=== PATIENT | male | born 1975 | race Hispanic/Latino ===

== ENCOUNTER 2021-06-16 09:44 | Emergency (ER) | payer OTHER ==
[2021-06-16] MEDS ORDERED: NA CHLORIDE 0.9% 1,000 ML ONE (10:25)
[2021-06-16] MEDS ORDERED: METHYLPREDNISOLONE 125 MG INJ ONE (10:25)
[2021-06-16 10:35] LABS: Absolute Lymphocytes (CBC) 1.5 K/uL (0.7-4.9); Basophils % 0.4 % (0-1.3); Hematocrit 44.8 % (39.6-49.0); Lymphocytes % 16.2 % (15.3-44.8); RBC Red Blood Cell Count 4.95 M/uL (4.33-5.43)
[2021-06-16 10:48] LABS: Protime INR 1.1
[2021-06-16 11:00] LABS: ALT/SGPT 75 U/L (12-78); AST/SGOT 29 U/L (15-37); Albumin 4.1 g/dL (3.4-5.0); Alkaline Phosphatase 62 U/L (45-117); BUN Blood Urea Nitrogen 15 mg/dL (7-18); Bicarbonate 23 mmol/L (21-32); Bilirubin Direct 0.2 mg/dL (0-0.2); Bilirubin Total 0.5 mg/dL (0.2-1.0); Glucose Level 135 mg/dL (74-106); Potassium 3.8 mmol/L (3.5-5.1); Protein, Total 8.2 g/dL (6.4-8.2); Sodium Level 138 mmol/L (136-145); Troponin (Emerg Dept Use Only) < 0.02 ng/mL (0.0-0.045)
--- NOTE | 2021-06-16 11:18 | RAD REPORT ---
EXAM DESCRIPTION: RAD - Chest Single View - 06/16/2021 10:43 am CLINICAL HISTORY: Cough;Dyspnea Chest pain. COMPARISON: No comparisons FINDINGS: Portable technique limits examination quality. The lungs are grossly clear. The heart is normal in size. No displaced fractures. IMPRESSION: No acute intrathoracic process suspected.
[2021-06-16] MEDS ORDERED: ACETAMINOPHEN 325 MG TABLET ONE (12:06)
[2021-06-16] MEDS ORDERED: levoFLOXacin 750 MG TAB ONE (14:53)
--- NOTE | 2021-06-17 17:24 | ER ---
Nurse's Notes [facility] Name: Russell Bhatti Age: 45 yrs Sex: Male : 1975 Arrival Date: 06/16/2021 Time: 09:49 Bed 17 Private MD: Diagnosis: Cough;Fever, unspecified Presentation: 06/16 09:49 Chief complaint: Patient states: nausea/vomiting/diarrhea, cough and congestion x 3 aa5 days ago. Pt reports being at [facility] for 5 days for Alcoholism. 09:49 Onset of symptoms was May 2021. aa5 09:49 Acuity: ESTEBAN 3 aa5 09:49 Method Of Arrival: EMS: [facility] aa5 09:49 Coronavirus screen: diarrhea, nausea, vomiting. Ebola Screen: Patient negative for aa5 fever greater than or equal to 101.5 degrees Fahrenheit, and additional compatible Ebola Virus Disease symptoms. Initial Sepsis Screen: Does the patient meet any 2 criteria? No. Patient's initial sepsis screen is negative. Does the patient have a suspected source of infection? No. Patient's initial sepsis screen is negative. Risk Assessment: Do you want to hurt yourself or someone else? Patient reports no desire to harm self or others. 09:49 Care prior to arrival: Glucose check: 165. aa5 Historical: - Allergies: 09:49 No Known Allergies; aa5 - PMHx: 09:49 Hypertensive disorder; Diabetes mellitus; Neuropathy/Chronic pain; aa5 - Immunization history:: Client reports receiving the 1st dose of the Covid vaccine. - Social history:: Smoking status: Patient denies any tobacco usage or history of. - Family history:: not pertinent. - Hospitalizations: : No recent hospitalization is reported. Screenin:30 Abuse screen: Denies threats or abuse. Nutritional screening: No deficits noted. ap3 Tuberculosis screening: No symptoms or risk factors identified. Fall Risk None identified. Assessment: 10:37 General: Appears in no apparent distress. uncomfortable, Behavior is calm, cooperative, ap3 appropriate for age. General: Reports feeling ill for 12-24 hours. Pain: Complains of pain in generalized aches and pains. Neuro: Level of Consciousness is awake, alert, obeys commands, Oriented to person, place, time, situation, Appropriate for age. Cardiovascular: Denies chest pain, Capillary refill < 3 seconds Patient's skin is warm and dry. Respiratory: Airway is patent Respiratory effort is even, unlabored, Respiratory pattern is regular, symmetrical. GI: Abdomen is round Reports diarrhea. : No signs and/or symptoms were reported regarding the genitourinary system. EENT: Reports lack of ability to taste or smell. 11:38 Reassessment: Patient and/or family updated on plan of care and expected duration. Pain ap3 level reassessed. Patient is alert, oriented x 3, equal unlabored respirations, skin warm/dry/pink. 14:26 Reassessment: No changes from previously documented assessment. ap3 Vital Signs: 09:50 BP 131 / 93; Pulse 101; Pulse Ox 100% on R/A; ap3 09:50 Temp 99.2(O); Weight 113.4 kg (R); Height 5 ft. 9 in. (175.26 cm) (R); Pain 10/10; aa5 11:38 Pulse 85; Resp 17; Pulse Ox 100% on R/A; ap3 12:22 BP 126 / 99; Pulse 89; Resp 19; Pulse Ox 100% on R/A; ap3 13:32 BP 112 / 69; Pulse 101; Pulse Ox 98% on R/A; ap3 14:26 Pulse 88; Resp 16; Pulse Ox 99% on R/A; ap3 09:50 Body Mass Index 36.92 (113.40 kg, 175.26 cm) aa5 ED Course: 09:49 Patient arrived in ED. aa5 09:49 Kip Tolentino MD is Attending Physician. rn 09:49 Arm band placed on. aa5 09:50 Patricia Sheridan, JIMBO is Primary Nurse. ap3 10:05 Inserted saline lock: 20 gauge in right antecubital area, using aseptic technique. ap3 Blood collected. 10:15 Triage completed. aa5 10:30 Patient has correct armband on for positive identification. Placed in gown. Bed in low ap3 position. Call light in reach. Side rails up X2. Pulse ox on. NIBP on. Door closed. Noise minimized. 10:43 CXR XRAY In Process Unspecified. EDMS 14:36 No provider procedures requiring assistance completed. IV discontinued, intact, ap3 bleeding controlled, No redness/swelling at site. Pressure dressing applied. Administered Medications: 10:43 Drug: NS 0.9% 500 ml Route: IV; Rate: bolus; Site: right antecubital; ap3 14:28 Follow up: Response: No adverse reaction; IV Status: Completed infusion ap3 10:43 Drug: SOLU-Medrol (methylPrednisoLONE) 125 mg Route: IVP; Site: right antecubital; ap3 11:42 Follow up: Response: No adverse reaction ap3 14:28 Follow up: Response: No adverse reaction ap3 11:47 Drug: Tylenol 650 mg Route: PO; ap3 12:34 Follow up: Response: No adverse reaction; Pain is decreased ap3 14:28 Follow up: Response: No adverse reaction ap3 14:36 Drug: LevaQUIN (levofloxacin) 750 mg Route: PO; ap3 14:37 Follow up: Response: No adverse reaction ap3 Outcome: 14:25 Discharge ordered by . rn 14:36 Discharged to home ambulatory. ap3 14:36 Condition: good 14:36 Discharge instructions given to patient, Instructed on discharge instructions, follow up and referral plans. medication usage, Demonstrated understanding of instructions, follow-up care, medications, Prescriptions given X 1. 14:37 Patient left the ED. ap3 Signatures: Dispatcher [employer] EDMS Kip Tolentino MD MD rn Calderon, Audri RN RN aa5 Patricia Sheridan RN RN ap3 Corrections: (The following items were deleted from the chart) 10:15 09:49 Chief complaint: Patient states: nausea/vomiting/diarrhea, cough and congestion x aa5 3 days ago. aa5 10:19 09:50 Temp 99.2F Oral; aa5 aa5 10:19 09:49 Chief complaint: Patient states: nausea/vomiting/diarrhea, cough and congestion x aa5 3 days ago. Pt reports being at [facility] for 5 days for Alcoholism. aa5
--- NOTE | 2021-06-17 17:24 | EDPHYS ---
Physician Documentation [facility] Name: Russell Bhatti Age: 45 yrs Sex: Male : 1975 Arrival Date: 06/16/2021 Time: 09:49 Bed 17 Private MD: ED Physician Kip Tolentino HPI: 06/16 10:07 This 45 yrs old Male presents to ER via Unassigned with complaints of Cough, congestion.rn 10:08 The patient or guardian reports cough, that is intermittent, described as mild. Onset: rn The symptoms/episode began/occurred 3 day(s) ago. Severity of symptoms: At their worst the symptoms were mild, in the emergency department the symptoms are unchanged. Modifying factors: The symptoms are alleviated by nothing, the symptoms are aggravated by nothing. Associated signs and symptoms: Pertinent positives: diarrhea, fever, rhinorrhea, Pertinent negatives: chest pain. The patient has not experienced similar symptoms in the past. The patient has not recently seen a physician. Reports 3 days of subjective fever, chills, nasal congestion, cough, lack of taste and smell, diarrhea, muscle aches and fatigue. Has had 1 shot in his Covid vaccine series.. Historical: - Allergies: 09:49 No Known Allergies; aa5 - PMHx: 09:49 Hypertensive disorder; Diabetes mellitus; Neuropathy/Chronic pain; aa5 - Immunization history:: Client reports receiving the 1st dose of the Covid vaccine. - Social history:: Smoking status: Patient denies any tobacco usage or history of. - Family history:: not pertinent. - Hospitalizations: : No recent hospitalization is reported. ROS: 10:08 Constitutional: Positive for fever and chills Eyes: Negative for injury, pain, redness, rn and discharge, ENT: Positive for nasal congestion Neck: Negative for injury, pain, and swelling, Cardiovascular: Negative for chest pain, palpitations, and edema, Respiratory: Positive for cough Abdomen/GI: Positive for nausea and diarrhea Back: Negative for injury and pain, : Negative for injury, bleeding, discharge, and swelling, MS/Extremity: Negative for injury and deformity, Skin: Negative for injury, rash, and discoloration, Neuro: Negative for headache, numbness, tingling, and seizure. Exam: 10:08 Constitutional: This is a well developed, well nourished patient who is awake, alert, rn and in no acute distress. Head/Face: Normocephalic, atraumatic. Eyes: Pupils equal round and reactive to light, extra-ocular motions intact. Lids and lashes normal. Conjunctiva and sclera are non-icteric and not injected. Cornea within normal limits. Periorbital areas with no swelling, redness, or edema. ENT: Moist mucous membranes, no stridor Neck: Trachea midline, no masses palpated, and no cervical lymphadenopathy. Supple, full range of motion without nuchal rigidity, or vertebral point tenderness. No Meningismus. Cardiovascular: Tachycardic, regular. No pulse deficits. Respiratory: Mild tachypnea, speaking full sentences. Abdomen/GI: Soft nontender Skin: Warm, dry, no evidence of cellulitis MS/ Extremity: Pulses equal, no cyanosis. Neurovascular intact. Full, normal range of motion. Equal circumference. Neuro: Awake and alert, GCS 15, oriented to person, place, time, and situation. Cranial nerves II-XII grossly intact. Motor strength 5/5 in all extremities. Sensory grossly intact. Cerebellar exam normal. Vital Signs: 09:50 BP 131 / 93; Pulse 101; Pulse Ox 100% on R/A; ap3 09:50 Temp 99.2(O); Weight 113.4 kg (R); Height 5 ft. 9 in. (175.26 cm) (R); Pain 10/10; aa5 11:38 Pulse 85; Resp 17; Pulse Ox 100% on R/A; ap3 12:22 BP 126 / 99; Pulse 89; Resp 19; Pulse Ox 100% on R/A; ap3 13:32 BP 112 / 69; Pulse 101; Pulse Ox 98% on R/A; ap3 14:26 Pulse 88; Resp 16; Pulse Ox 99% on R/A; ap3 09:50 Body Mass Index 36.92 (113.40 kg, 175.26 cm) aa5 MDM: 09:49 Patient medically screened. rn 14:23 Differential Diagnosis: Bronchitis Influenza Upper Respiratory Infection Sinusitis rn Viral Syndrome Pneumonia Other COVID. Data reviewed: vital signs, nurses notes, lab test result(s), radiologic studies, plain films, and as a result, I will discharge patient. Counseling: I had a detailed discussion with the patient and/or guardian regarding: the historical points, exam findings, and any diagnostic results supporting the discharge/admit diagnosis, lab results, radiology results, the need for outpatient follow up, to return to the emergency department if symptoms worsen or persist or if there are any questions or concerns that arise at home. Response to treatment: the patient's symptoms have mildly improved after treatment, and as a result, I will discharge patient. Special discussion: I discussed with the patient/guardian in detail that at this point there is no indication for admission to the hospital. It is understood, however, that if the symptoms persist or worsen the patient needs to return immediately for re-evaluation. ED course: With negative, no acute findings on chest x-ray, no oxygen requirement. Patient states around 3 or 4 other sick patients that appear worse than he is, so could be another viral infection. Will cover with antibiotics given unclear etiology and given return precautions. Recommend Covid retest in 48 hours given elevated ferritin and CRP and other symptoms consistent with possible Covid infection. 06/16 09:51 Order name: BMP 06/16 09:51 Order name: Blood Culture Adult (2) 06/16 09:51 Order name: C-Reactive Protein; Complete Time: 11:19 06/16 09:51 Order name: CBC with Diff; Complete Time: 10:40 06/16 09:51 Order name: D-Dimer; Complete Time: 11:19 06/16 09:51 Order name: Ferritin; Complete Time: 11:19 06/16 09:51 Order name: Flu; Complete Time: 12:41 06/16 09:51 Order name: LFT's; Complete Time: 11:19 06/16 09:51 Order name: Lactate; Complete Time: 11:19 06/16 09:51 Order name: PT-INR; Complete Time: 11:19 06/16 09:51 Order name: Procalcitonin; Complete Time: 11:19 06/16 09:51 Order name: Ptt, Activated; Complete Time: 11:19 06/16 09:51 Order name: Strep; Complete Time: 12:41 06/16 09:51 Order name: Troponin (emerg Dept Use Only); Complete Time: 11:19 06/16 09:51 Order name: CXR XRAY; Complete Time: 11:06/16 09:51 Order name: Cardiac monitoring; Complete Time: 09:58 rn 06/16 09:51 Order name: Droplet/Contact Precautions; Complete Time: 09:58 rn 06/16 09:51 Order name: EKG - Nurse/Tech; Complete Time: 14:37 rn 06/16 09:51 Order name: IV Start; Complete Time: 09:53 rn 06/16 09:51 Order name: Labs collected and sent; Complete Time: 09:53 rn 06/16 09:51 Order name: O2 Per Protocol; Complete Time: 09:53 rn 06/16 09:51 Order name: Basic Metabolic Panel; Complete Time: 11:19 EDMS 06/16 12:11 Order name: Throat Culture EDMT 06/16 13:24 Order name: SARS-COV-2 RT PCR; Complete Time: 13:54 EDMT 06/16 09:51 Order name: O2 Sat Monitoring; Complete Time: 09:53 rn Administered Medications: 10:43 Drug: NS 0.9% 500 ml Route: IV; Rate: bolus; Site: right antecubital; ap3 14:28 Follow up: Response: No adverse reaction; IV Status: Completed infusion ap3 10:43 Drug: SOLU-Medrol (methylPrednisoLONE) 125 mg Route: IVP; Site: right antecubital; ap3 11:42 Follow up: Response: No adverse reaction ap3 14:28 Follow up: Response: No adverse reaction ap3 11:47 Drug: Tylenol 650 mg Route: PO; ap3 12:34 Follow up: Response: No adverse reaction; Pain is decreased ap3 14:28 Follow up: Response: No adverse reaction ap3 14:36 Drug: LevaQUIN (levofloxacin) 750 mg Route: PO; ap3 14:37 Follow up: Response: No adverse reaction ap3 Disposition Summary: 06/16/21 14:25 Discharge Ordered Location: Home rn Problem: new rn Symptoms: have improved rn Condition: Stable rn Diagnosis - Cough rn - Fever, unspecified rn Followup: rn - With: Private Physician - When: As needed - Reason: Recheck today's complaints, Re-evaluation by your physician Discharge Instructions: - Discharge Summary Sheet rn - Fever, Adult rn - Cough, Adult rn Forms: - Medication Reconciliation Form rn - Thank You Letter rn - Antibiotic external relations manager - Prescription Opioid Use rn Prescriptions: - levofloxacin 750 mg Oral Tablet - take 1 tablet by ORAL route once daily for 7 days; 7 tablet; Refills: 0, rn Product Selection Permitted Signatures: Dispatcher [employer] EDKip Narayan MD MD rn Calderon, Audri, RN RN aa5 Patricia Sheridan RN RN ap3 Corrections: (The following items were deleted from the chart) 12:17 09:52 CORONAVIRUS+.BRZ ordered. EDMS EDMS
[2021-06-18 07:53] VITALS: TEMP 99.2
[2021-06-18 08:02] VITALS: BP 112/69
[2021-06-18 08:03] VITALS: O2SAT 99
== END 2021-06-16 14:37 | disposition home or self-care (01) ==
LOC: ER 09:44
DX: R50.9 Fever, unspecified (principal); I10 Essential (primary) hypertension; Z20.822 Contact with and (suspected) exposure to COVID-19
CPT/HCPCS: 87040 ×2; 87070; 85025; 80048; 36415; 85610; 85379; 80076; 87081; 83605; 85730; 84484; 82728; 84145; 86140; 87804 ×2; 71045; U0003; J7030; J2930

== ENCOUNTER 2025-09-11 17:48 | Emergency (ER) | payer OTHER ==
[2025-09-11] MEDS ORDERED: AMOX/K CLAV 875 MG TAB ONE (18:40)
--- NOTE | 2025-09-11 18:40 | EDPHYS ---
Physician Documentation [facility] Name: Russell Bhatti Age: 50 yrs Sex: Male : 1975 Arrival Date: 09/11/2025 Time: 17:48 Bed 14 Private MD: ED Physician Joel Galvan HPI: 09/11 18:38 This 50 yrs old Male presents to ER via Ambulatory with complaints of Dog Bite kb - LT HAND. 18:38 Patient is a 50-year-old male who presents for dog bite that occurred last night. kb States he was playing with his dog and it bit him. Reports he came in because he was concerned that it would get infected and he was not sure if he needed antibiotics. Last tetanus shot within this year.. Historical: - Allergies: 17:59 No Known Allergies; dd2 - PMHx: 17:59 diabetes mellitus; Hypertensive disorder; Neuropathy/Chronic pain; dd2 - PSHx: 17:59 None; dd2 - Immunization history:: Adult Immunizations up to date, Last tetanus immunization: up to date. - Infectious Disease History:: Denies. - Social history:: Smoking status: Patient denies any tobacco usage or history of. ROS: 18:37 Constitutional: As per HPI kb Exam: 18:37 Constitutional: This is a well developed, well nourished patient who is awake, alert, kb and in no acute distress. Head/Face: Normocephalic, atraumatic. ENT: Moist Mucous membranes Respiratory: Respirations even and unlabored. No increased work of breathing. Talking in full sentences MS/ Extremity: Pulses equal, no cyanosis. Neurovascular intact. Full, normal range of motion. Neuro: Awake and alert, GCS 15, oriented to person, place, time, and situation. 18:37 Skin: injury, bite(s), superficial, of the left middle finger, left ring finger and left little finger, laceration to fifth digit, small puncture wounds to third and fourth digits, Vital Signs: 17:56 BP 126 / 88; Pulse 83; Resp 16; Temp 98.6; Pulse Ox 97% ; Weight 111.13 kg; Pain 9/10; dd2 17:56 Pain Scale: Adult dd2 Angelic Coma Score: 18:55 Eye Response: spontaneous(4). Motor Response: obeys commands(6). Verbal Response: km10 oriented(5). Total: 15. Trauma Score (Adult): 18:55 Eye Response: spontaneous(1); Verbal Response: oriented(1); Motor Response: obeys km10 commands(2); Systolic BP: > 89 mm Hg(4); Respiratory Rate: 10 to 29 per min(4); Angelic Score: 15; Trauma Score: 12 MDM: 17:53 Medical Screening Exam initiated kb 18:38 Differential diagnosis: superficial laceration, tendon injury, cellulitis. Data kb reviewed: vital signs, nurses notes. Test considered but Not performed: X-ray: xray considered but pt has full ROM . Counseling: I had a detailed discussion with the patient and/or guardian regarding the historical points, exam findings, and any diagnostic results supporting the discharge/admit diagnosis, the need for outpatient follow up, a family practitioner, to return to the emergency department if symptoms worsen or persist or if there are any questions or concerns that arise at home. 09/11 18:00 Order name: Wound Care; Complete Time: 18:55 kb Administered Medications: 18:55 Drug: Amoxicillin-Clavulanate PO 875 mg PO once Route: PO; km10 18:55 Follow up: Response: No adverse reaction km10 Disposition: 19:09 I was immediately available on-site in the Emergency Department for consultation in the ms3 care of the patient. Disposition Summary: 09/11/25 18:39 Discharge Ordered Notes: Location: Home kb Condition: Stable kb Diagnosis - Bitten by dog kb Followup: kb - With: Emergency Department - When: As needed - Reason: Worsening of condition Followup: kb - With: Private Physician - When: 2 - 3 days - Reason: Recheck today's complaints, Continuance of care, Re-evaluation by your physician Discharge Instructions: - Discharge Summary Sheet kb - Animal Bite, Adult, [id number] kb Forms: - Medication Reconciliation Form kb - Antibiotic Education kb - Prescription Opioid Use kb - Patient Portal Instructions kb - Leadership Thank You Letter kb Prescriptions: - Augmentin 875-125 mg Oral Tablet - take 1 tablet ORAL route every 12 hours for 10 days; 20 tablet; Refills: 0, kb Product Selection Permitted Signatures: Sapphire Coles FNP-C FNP-Joel Sloan DO DO ms3 ANNE LANDAVERDE RN RN dd2 Viktoria Silva RN RN km10 Corrections: (The following items were deleted from the chart) 18:39 18:38 Patient is a 50-year-old male who presents for dog bite that occurred last night. kb States he was playing with his dog and it bit him. Reports he came in because he was concerned that it would get infected and he was not sure if he needed antibiotics.. kb
--- NOTE | 2025-09-11 18:40 | ER ---
Nurse's Notes [facility] Name: Russell Bhatti Age: 50 yrs Sex: Male : 1975 Arrival Date: 09/11/2025 Time: 17:48 Bed 14 Private MD: Diagnosis: Bitten by dog Presentation: 09/11 17:56 Chief complaint: Patient states: HE WAS BIT BY HIS DOG, PIT BULL, LAST NIGHT, ON HIS LT dd2 HAND 5TH FINGER. Coronavirus screen: At this time, the client does not indicate any symptoms associated with coronavirus-19. Ebola Screen: No symptoms or risks identified at this time. Initial Sepsis Screen: Does the patient meet any 2 criteria? No. Patient's initial sepsis screen is negative. Does the patient have a suspected source of infection? No. Patient's initial sepsis screen is negative. Risk Assessment: Do you want to hurt yourself or someone else? Patient reports no desire to harm self or others. Onset of symptoms was September 10, 2025. 17:56 Method Of Arrival: Ambulatory dd2 17:56 Acuity: ESTEBAN 3 dd2 Triage Assessment: 17:59 Bite description: bite sustained to dorsal aspect of distal phalanx of left middle dd2 finger, dorsal aspect of middle phalanx of left middle finger, dorsal aspect of middle phalanx of left ring finger and palmar aspect of distal phalanx of left little finger by a dog, animal information: vaccination(s) is current, was sustained 12-24 hours ago. General: Appears in no apparent distress. uncomfortable, Behavior is cooperative, appropriate for age, anxious. Pain: Complains of pain in dorsal aspect of distal phalanx of left middle finger, dorsal aspect of middle phalanx of left middle finger, dorsal aspect of middle phalanx of left ring finger and palmar aspect of distal phalanx of left little finger. Injury Description: Bite sustained to dorsal aspect of distal phalanx of left middle finger, dorsal aspect of middle phalanx of left middle finger, dorsal aspect of middle phalanx of left ring finger and palmar aspect of distal phalanx of left little finger caused by a dog. Historical: - Allergies: 17:59 No Known Allergies; dd2 - PMHx: 17:59 diabetes mellitus; Hypertensive disorder; Neuropathy/Chronic pain; dd2 - PSHx: 17:59 None; dd2 - Immunization history:: Adult Immunizations up to date, Last tetanus immunization: up to date. - Infectious Disease History:: Denies. - Social history:: Smoking status: Patient denies any tobacco usage or history of. Screenin:55 [facility] ED Fall Risk Assessment (Adult) History of falling in the last 3 months, km10 including since admission No falls in past 3 months (0 pts) Confusion or Disorientation No (0 pts) Intoxicated or Sedated No (0 pts) Impaired Gait No (0 pts) Mobility Assist Device Used No (0 pt) Altered Elimination No (0 pt) Score/Fall Risk Level 0 - 2 = Low Risk Oriented to surroundings, Maintained a safe environment, Assessed \T\ reinforced patient's understanding of fall precautions, Hourly rounding (assess needs \T\ fall precautionary measures) done. Abuse screen: Denies threats or abuse. Denies injuries from another. Nutritional screening: No deficits noted. Tuberculosis screening: No symptoms or risk factors identified. Assessment: 18:24 Reassessment: Patient and/or family updated on plan of care and expected duration. Pain ll1 level reassessed. 18:43 Reassessment: CALLED GILBERTO SNELL FOR ANIMAL CONTROL REPORT. SPOKE WITH SHAINA AND WAS dd2 ANIMAL CONTROL CLOSED, TO GIVE PT THE NUMBER TO CALL FOR OFFICER TO COME TO HOME FOR DETAILED REPORT. 18:57 Derm: Skin laceration, multiple puncture wounds Skin is pink, warm \T\ dry. km10 Vital Signs: 17:56 BP 126 / 88; Pulse 83; Resp 16; Temp 98.6; Pulse Ox 97% ; Weight 111.13 kg; Pain 9/10; dd2 17:56 Pain Scale: Adult dd2 Angelic Coma Score: 18:55 Eye Response: spontaneous(4). Motor Response: obeys commands(6). Verbal Response: km10 oriented(5). Total: 15. Trauma Score (Adult): 18:55 Eye Response: spontaneous(1); Verbal Response: oriented(1); Motor Response: obeys km10 commands(2); Systolic BP: > 89 mm Hg(4); Respiratory Rate: 10 to 29 per min(4); [place] Score: 15; Trauma Score: 12 ED Course: 17:51 Patient arrived in ED. cj3 17:52 Sapphire Coles F[facility]-C [facility]. kb 17:52 Joel Galvan DO is Attending Physician. kb 17:59 Triage completed. dd2 17:59 Arm band placed on right wrist. dd2 18:24 Viktoria Silva, RN is Primary Nurse. km10 18:24 Patient placed in an exam room, on a stretcher. ll1 18:56 Patient has correct armband on for positive identification. Bed in low position. Call km10 light in reach. Side rails up X 1. Provided Education on: plan of care. 18:56 Patient did not have IV access during this emergency room visit. km10 18:56 Wound care: to laceration located on palmar aspect of distal phalanx of left little km10 finger was cleaned with soap and water, irrigated with normal saline, dressed with Kerlix. 18:59 No provider procedures requiring assistance completed. km10 Administered Medications: 18:55 Drug: Amoxicillin-Clavulanate PO 875 mg PO once Route: PO; km10 18:55 Follow up: Response: No adverse reaction km10 Medication: 18:59 VIS not applicable for this client. km10 Outcome: 18:39 Discharge ordered by MD. kb 18:58 Discharged to home ambulatory, km10 18:58 Condition: stable 18:58 Discharge instructions given to patient, Instructed on discharge instructions, follow up and referral plans. medication usage, Demonstrated understanding of instructions, follow-up care, medications, wound care, Prescriptions given X 1, 18:59 Patient left the ED. km10 Signatures: Sapphire Coles FNP-C FNP-Ronda Stewart RN RN ll1 ANNE LANDAVERDE RN RN dd2 Sonia Marcelo 3 Viktoria Silva, JIMBO RN km10
[2025-09-11 21:15] VITALS: BP 126/88; TEMP 98.6; O2SAT 97
== END 2025-09-11 18:59 | disposition home or self-care (01) ==
LOC: ER 17:48
DX: S61.432A Puncture wound without foreign body of left hand, initial encounter (principal); W54.0XXA Bitten by dog, initial encounter
CPT/HCPCS: 99284